=== PATIENT | female | born 1955 | race Two or more races ===

== ENCOUNTER 2024-07-09 11:45 | Inpatient (IN) | payer OTHER ==
[~2024-07-09] VITALS: Ht 157.5 cm; Wt 68.9 kg
[2024-07-09] MEDS ORDERED: FARXIGA10 MG PO (14:31)
[2024-07-09] MEDS ORDERED: COZAAR50 MG PO (14:31)
[2024-07-09] MEDS ORDERED: CARVEDILOL6.25 MG (14:31)
[2024-07-09] MEDS ORDERED: HYDROCHLOROTHIA25 MG PO (14:31)
[2024-07-09] MEDS ORDERED: ZETIA10 MG PO (14:32)
[2024-07-09] MEDS ORDERED: LIPITOR40 MG PO (14:32)
[2024-07-09] MEDS ORDERED: ELIQUIS5 MG PO (14:32)
[2024-07-09] MEDS ORDERED: LANTUS SOL100 UNIT/1 (14:32)
[2024-07-16] MEDS ORDERED: TRANEXAMIC ACID 100MG/1ML (1000MG) AMPUL IV ONE ×2 (09:33→12:45)
[2024-07-16] MEDS ORDERED: VANCOMYCIN HCL 1,000 MG VIAL ONE ×2 (09:33→11:30)
[2024-07-16] MEDS ORDERED: KETOROLAC TROMETHAMINE 60 MG VIAL IM ONE ×2 (11:05→12:45)
[2024-07-16] MEDS ORDERED: POVIDONE-IODINE 118 ML BOTT TOP ONE (11:06)
[2024-07-16] MEDS ORDERED: BUPIVACAINE HCL/Mpf 0.5% 10ML VIAL ONE (11:07)
[2024-07-16] MEDS ORDERED: LIDOCAINE HCL 1%/EPINEPHRINE 20ML VIAL IJ ONE ×2 (11:07→12:45)
[2024-07-16] MEDS ORDERED: VANCOMYCIN HCL 1,000 MG VIAL IV ONE (12:45)
[2024-07-16] MEDS ORDERED: VANCOMYCIN HCL 1,000 MG VIAL IR ONE (12:45)
[2024-07-16] MEDS ORDERED: BUPIVACAINE HCL/PF 0.25% 30ML VIAL InF ONE (12:45)
[2024-07-16] MEDS ORDERED: MORPHINE SULFATE 4 MG/ML VIAL IV ONE ×3 (12:45→14:35)
[2024-07-16] MEDS ORDERED: POVIDONE-IODINE SCRUB 118 ML BOTT TOP ONE (12:45)
[2024-07-16] MEDS ORDERED: hydrALAZINE HCL 20 MG VIAL IV PRN (13:30)
[2024-07-16] MEDS ORDERED: MORPHINE SULFATE 4 MG/ML CARTRIDGE IV PRN (19:45)
[2024-07-16] MEDS ORDERED: OxyCODONE HCL 5 MG TABLET (ROXICODONE) PO PRN (19:45)
[2024-07-16] MEDS ORDERED: SODIUM CHLORIDE 0.45 % 1,000 ML IV SCH (19:45)
[2024-07-16] MEDS ORDERED: ONDANSETRON HCL 2 MG/ML VIAL IV PRN (19:45)
[2024-07-16] MEDS ORDERED: VANCOMYCIN HCL 1,000 MG in 0.9 % SODIUM CHLORIDE 250 ML IV SCH (21:00)
[2024-07-16] MEDS ORDERED: CARVEDILOL 6.25 MG TABLET PO SCH (21:00)
[2024-07-17] MEDS ORDERED: ACETAMINOPHEN 500 MG GEL..CAP PO SCH
[2024-07-17] MEDS ORDERED: GABAPENTIN 300 MG CAPSULE PO SCH (01:00)
[2024-07-17] MEDS ORDERED: SENNOSIDES 1 TAB TABLET PO SCH (09:00)
[2024-07-17] MEDS ORDERED: APIXABAN 2.5 MG TABLET PO SCH (09:00)
[2024-07-17] MEDS ORDERED: HYDROCHLOROTHIAZIDE 25 MG TABLET PO SCH (09:00)
[2024-07-17] MEDS ORDERED: ATORVASTATIN CALCIUM 40 MG TABLET PO SCH (09:00)
[2024-07-17] MEDS ORDERED: LOSARTAN POTASSIUM 50 MG TABLET PO SCH (09:00)
[2024-07-17] MEDS ORDERED: PERCOCET 5-3251 EACH PO (09:08)
[2024-07-17] MEDS ORDERED: ELIQUIS2.5 MG PO (09:08)
[2024-07-17] MEDS ORDERED: CIPRO500 MG PO (09:08)
[2024-07-17 10:19] LABS: HEMATOCRIT 35.9 % (36.0-45.00); MEAN CELL VOLUME 90.7 fL (80.00-100.00); MEAN CORPUSCULAR HEMOGLOBIN 30.3 pg (27.00-32.0); MEAN CORPUSCULAR HGB CONC 33.4 g/dl (32.0-36.0); PLATELET COUNT 120 K/uL (150-450); RED BLOOD COUNT 3.96 M/uL (4.00-6.00); RED CELL DISTRIBUTION WIDTH 13.3 % (11.5-14.5)
[2024-07-17 11:39] LABS: ALBUMIN 3.1 gm/dL (3.4-5.0); BILIRUBIN TOTAL 0.97 mg/dL (0.3-1.2); CALCIUM 8.3 mg/dL (8.5-10.1); CREATININE SERUM 0.5 mg/dL (0.55-1.02); GFR 122.33; GLOBULINA 2.9 G/DL (2.4-3.5); POTASSIUM 3.71 mEq/L (3.5-5.1)
[2024-07-17] MEDS ORDERED: SOD FERRIC GLUC COMPLX/SUCROSE 62.5 MG/5 ML AMPUL IV SCH (17:00)
[2024-07-17] MEDS ORDERED: VITAMIN B COMPLEX 1 EACH PO SCH (17:00)
[2024-07-17] MEDS ORDERED: Cyanocobalamin/Mecobalamin 1 TAB.SL SL SCH (17:00)
[2024-07-17] MEDS ORDERED: APIXABAN 5 MG TABLET PO SCH (21:00)
[2024-07-18] MEDS ORDERED: IRON FUM,PS/FOLIC ACID/VITC/B3 1 CAP CAPSULE PO SCH (09:00)
[2024-07-18] MEDS ORDERED: SODIUM CL 0.9% 250 ML IV.SOLN ONE (17:17)
[2024-07-18 17:56] LABS: HEMATOCRIT 40.3 % (36.0-45.00); HEMOGLOBIN 13.3 g/dL (12.0-15.00); MEAN CELL VOLUME 90.6 fL (80.00-100.00); MEAN CORPUSCULAR HEMOGLOBIN 29.9 pg (27.00-32.0); PLATELET COUNT 143 K/uL (150-450); RED BLOOD COUNT 4.44 M/uL (4.00-6.00); RED CELL DISTRIBUTION WIDTH 13.6 % (11.5-14.5)
== END 2024-07-18 21:31 | DRG 470 ==
LOC: O/R 07-16 06:48 → LDR 07-16 11:45 → SURH 07-16 14:26
PROVIDERS: ADMIT Orthopaedic Surgery; ATTEND Orthopaedic Surgery
PROC: 0SRC0J9 Replacement of Right Knee Joint with Synthetic Substitute, Cemented, Open Approach (ICD-10-PCS; principal; 2024-07-16 12:45)
DX: M17.11 Unilateral primary osteoarthritis, right knee (principal); D62 Acute posthemorrhagic anemia; M22.11 Recurrent subluxation of patella, right knee; I10 Essential (primary) hypertension